=== PATIENT | female | born 1980 | race Caucasian/White ===

== ENCOUNTER → 2016-09-15 12:30 | Observation (INO) ==
--- NOTE | 2016-09-15 12:22 | Discharge Summary ---
Date of Encounter: 09/15/16 Time of Encounter: 12:23 - Discharge Diagnosis (1) 40 weeks gestation of Priority: Primary Status: Acute Comments: No cervical change after 2 hours. NST reactive Discharge home with labor precautions Follow up in office with Dr Montez as scheduled tomorrow, or prn in L&D (2) False labor after 37 completed weeks of gestation Priority: Primary Status: Acute - Discharge Medications Home Medications: Doxylamine Succinate [Unisom] 0.5 tab PO PRN PRN 09/15/16 [History] Vit #108/Iron/FA [ One Tablet] 1 tab PO DAILY 09/15/16 [History ] Ranitidine HCl [Zantac] 1 tab PO DAILY 09/15/16 [History] Allergies/Adverse Reactions: Allergies No Known Allergies Allergy (Verified 09/15/16 10:44) Date of admission: 09/15/16 10:13 Primary care physician: Kiley Prieto Discharging clinician: Lara Arora Anticipated date of discharge: 09/15/16 - Patient Status Disposition: Home, Self-Care Condition: Good Functional capacity at discharge: independent ambulation Overall status at discharge: patient is back to baseline - Discharge Instructions Follow Up With: Kiley Campbell MD [Primary Care Provider] - Guero Montez MD [Partnered Physician] - (Appointment scheduled tomorrow) - Diet and Activity Activity: resume usual activities as tolerated Diet: regular diet Hospital Course [employer] Time Attestation: Total time spent providing and/or coordinating discharge services: Time Spent: Less than 30 minutes Exam - Constitutional General appearance IM: cooperative, A&O X 3, pleasant - Respiratory Respiratory exam: Present: CTAB - Cardiovascular Cardiovascular exam IM: Present: RRR, +S1, +S2 - GI/Abdominal GI/Abdominal exam IM: normal bowel sounds, soft - Additional comments: Gravid uterus; palpates soft. FHTs 140's with moderate variability, 15x15 accels, no decels, category I tracing Contractions every 3 minutes, palpate mild. Reactive NST Cervix 1/thick/-2 at 1030, repeat at 1220 1/thick/-2 bloody show; no [place] blood. - Extremities Exam Extremities exam IM: Present: normal capillary refill, normal inspection, radial pulses palpable and symetrical - Neurological Exam Neurological exam: alert, oriented X3, reflexes normal
== END | disposition home or self-care (01) ==
LOC: 1NENULAB
PROVIDERS: ADMIT Student in an Organized Health Care Education/Training Program; ATTEND Student in an Organized Health Care Education/Training Program

== ENCOUNTER 2016-09-16 18:58 | Inpatient (IN) ==
[2016-09-16] MEDS ORDERED: Famotidine 20 MG/2 ML VIAL IVP PRN (19:06)
[2016-09-16] MEDS ORDERED: Naloxone 0.4 MG/ML INJ IVP PRN (19:06)
[2016-09-16] MEDS ORDERED: *HR* Nalbuphine 20 MG/ML AMPUL IVP PRN (19:06)
[2016-09-16] MEDS ORDERED: Ondansetron 4 MG/2 ML VIAL IVP PRN (19:06)
--- NOTE | 2016-09-16 19:16 | OB/GYN History & Physical ---
Date of Encounter: 09/16/16 Time of Encounter: 20:00 Assessment and Plan (1) Polyhydramnios affecting Current visit: Yes Status: Acute Admit to labor and delivery GBS negative Induction of labor with santiago and possible cytotec and pitocin Nubain and epidural as desired Anticipate Plan of care made in consultation with Dr. Quick (2) 40 weeks gestation of Current visit: No Status: Acute History of Present Illness Chief complaint: Induction of labor HPI: Ms. Anthony Acuna is a 36 year old female 40+1, polyhydramnios (LALI 29) here for induction of labor. Reports good movement and contractions. Denies vaginal bleeding or leaking of fluid. No other complications. Labs: A-, GBS-, Rubella, Varicella immune, all other serologies negative. Past Med Surg Social Fam HX - Past Medical History Source: patient Medical history: no medical history Psychiatric history: depression - Past Surgical History Surgical History: no surgical history - Social History Smoking Status: Never smoker Smokeless Tobacco Status: No Alcohol use: none Drug use: none - Family History Mother Hx Family Cardiac Disorders: Yes (HTN) Obstetrical History - Pregnancies : 1 Para: 0 Term: 0 : 0 Ab's: 0 Livin Medications and Allergies Doxylamine Succinate [Unisom] 0.5 tab PO PRN PRN 09/15/16 [History] Vit #108/Iron/FA [ One Tablet] 1 tab PO DAILY 09/15/16 [History ] Ranitidine HCl [Zantac] 1 tab PO DAILY 09/15/16 [History] Allergies No Known Allergies Allergy (Verified 09/15/16 10:44) Review of System OB All systems PM: reviewed and no additional remarkable complaints except as stated Exam - Constitutional Constitutional: well developed, well nourished, no acute distress, average body habitus - Neck Neck exam: full ROM - Lungs Respiratory exam: CTAB - Cardiovascular Cardiovascular exam: RRR - Abdomen Abdomen: Present: bowel sounds normal, gravid, non tender - Extremities Extremities exam: normal capillary refill, normal inspection - Vagina Vagina: Present: normal moisture - Cervix Dilation: 2 Effacement: 75 Station: -2 - Uterus Uterus exam: Present: normal size, normal contour - Anus/Rectum Anus/Rectum: Present: normal perianal skin Results Result Diagrams: 09/16/16 19:05 All other labs normal. - VTE Reasons for not Prescribing Prophylaxis: Medical contraindication
[2016-09-16 19:30] LABS: Basophils % 0.2 %; Eosinophils % 0.2 %; Hematocrit 35.6 % (35.3-44.9); Hemoglobin 11.9 g/dL (11.5-15.4); Immature Granulocytes % 0.6 % (0-4); Lymphocytes # 1.9 K/mcL (0.6-4.6); Lymphocytes % 18.3 %; Mean Corpuscular HGB Conc 33.4 g/dL (31.6-35.5); Mean Corpuscular Hemoglobin 28.4 pg (28.0-33.3); Mean Platelet Volume 11.2 fL (9.4-12.4); Monocytes # 0.6 K/mcL (0.0-1.3); Monocytes % 5.9 %; Neutrophils # 7.8 K/mcL (1.6-8.9); Platelet Count 199 K/mcL (140-400); Red Blood Count 4.19 M/mcL (3.82-4.97); Red Cell Distribution Width 13.8 % (11.5-14.5); Segmented Neutrophils % 74.8 %
[2016-09-16 20:01] LABS: Platelet Clumps Few (Not Present); Platelet Estimate Normal (Normal)
[2016-09-16] MEDS ORDERED: Oxytocin 20 units/ LR 1000 mL 20 UNIT/1,000 ML BAG IVC SCH (22:45)
--- NOTE | 2016-09-16 22:46 | OB Labor Progress Note ---
Date of Encounter: 09/16/16 Time of Encounter: 22:44 Labor Progress Note - Subjective Subjective: Pt becoming more and more uncomfortable with contractions, breathing through them. - Vital Signs Vital Signs: VSS - Cervix Cervix: 4/80/-2 - Heart Tones Heart Tones: 125/moderate/+accels/-decels Cat I - [place]: 2-4 - Interventions Interventions: Will start pitocin - Plan Plan: Start pitocin per policy after 30 minutes of ambulation off monitor Nubain and Epidural as desired Anticipate
[2016-09-16] MEDS ORDERED: Epidural Premix (fent/bupiv) 110 ML EP SCH (23:45)
[2016-09-16] MEDS ORDERED: Ringers Solution, Lactated 500 ML IVC ONE (23:55)
[2016-09-16] MEDS ORDERED: EPHEDrine 50 MG/ML VIAL IVP PRN (23:55)
[2016-09-16] MEDS ORDERED: Epidural Premix (fent/bupiv) 110 ML EP ONE (23:58)
--- NOTE | 2016-09-17 00:48 | Anesthesia Evaluation PreOp ---
Date of Encounter: 09/17/16 Time of Encounter: 00:47 - Past History Planned Operation: DOMINGO Cardiac History: Denies any Significant Hx Pulmonary History: Denies Any Significant HX BAT BOY/GIRL History: Denies Any Significant HX Other Medical History: Denies Any Significant HX Anesthesia History: No Prior Anesthetic Complications Alcohol Use: none Drug use: none Medications and Allergies Doxylamine Succinate [Unisom] 0.5 tab PO PRN PRN 09/15/16 [History] Vit #108/Iron/FA [ One Tablet] 1 tab PO DAILY 09/15/16 [History ] Ranitidine HCl [Zantac] 1 tab PO DAILY 09/15/16 [History] Allergies No Known Allergies Allergy (Verified 09/15/16 10:44) - Meds/Allergy Pre-op Review Medications Reviewed: Yes Allergies Reviewed: Yes Beta Blockers on Current Med List: No Anesthesia Results - Labs 09/16/16 19:05 Anesthesia Exam Height: 5.5 Weight: 105.5kg NPO (# of Hours): 6 Pain Scale: 10 Pain Scale Used: Numeric (1 - 10) - HEENT Pupil (Motor): Pupils equal Mallampati: II Teeth: Normal Oral Opening: Greater than 3 - BAT BOY/GIRL LOC: Oriented BAT BOY/GIRL Motor: Normal RUE, Normal LUE, Normal RLE, Normal LLE, Normal Face BAT BOY/GIRL Sensory: Normal: RUE, LUE, RLE, LLE, Face - Cardiac Rhythm: Regular Murmur: None JVD: No Carotid Bruit: No - Pulmonary Breath Sounds: bilateral Clear Respiratory Effort: Symmetrical Anesthesia Assess/Plan ASA Score: 2 Modified [place] Scale for Level of Consciousness: Cooperative, oriented, and tranquil Anesthetic Plan: General (plan b), Regional (plan a) Autologous Blood: Yes Monitoring Plan: Standard Monitors
--- NOTE | 2016-09-17 00:51 | Anesthesia Procedures ---
Date of Encounter: 09/17/16 Time of Encounter: 00:49 Procedures: Anesthesia - Epidural/Spinal Patient ID/Chart reviewed: Yes Patient examined: Yes OB Eval: Gestational age: 40.1 OB Eval: : 1 OB Eval: Hx Para: 0 OB Eval: Dilated at (cm): 4 OB Eval: Contractions: Non-stressed pattern Consent Obtained: Yes Supplemental Oxygen: None/Room Air Site Prep: Aseptic Technique, Sterile prep and drape, Povidone-Iodine 1% Patient position: upright Local Anesthetic: Lidocaine 1% Amount of Local Anesthetic used: 3 Touhy Needle Gauge: 18 Touhy Needle Depth (cm): 10 Catheter Depth at Skin (cm): 20 Test Dose (1.5% Lido + Epi): Volume given (mls): 5 Test Dose Result: Negative Loading Dose: Other: 5mls of epidural pharm bag premix solution Loading Dose Administered: Thru Catheter Infusion Med: 0.125% Bupivacaine w/ 2 mcg/ml Fentanyl Infusion Rate (mls/hr): 14 ([id number]) Catheter Secured in Place: Tegaderm, Tape Interspace Used: L3-L4 Loss of Resistance (MOOKIE): Yes Blood: No CSF: No Paresthesia: No Procedure: pt tolerated procedure well. no complications. fhr stable. 114/61 hr 66 91/50 hr 65 (Ephedrine 5mg give IV) 108/68 hr 70 Pt comfortable. vss.
[2016-09-17] MEDS ORDERED: EPHEDrine 50 MG/ML VIAL ONE (00:55)
[2016-09-17] MEDS: Ringers Solution, Lactated 1,000 ML IVC SCH ×3 (00:58→06:33)
[2016-09-17] MEDS ORDERED: Famotidine 20 MG/2 ML VIAL IVP ONE ×2 (01:40→19:32)
--- NOTE | 2016-09-17 05:57 | OB Labor Progress Note ---
Date of Encounter: 09/17/16 Time of Encounter: 05:54 Labor Progress Note - Subjective Subjective: Pt in bed with epidural. Feeling some contractions, anesthesia called to evaluate for increasing rate. - Vital Signs Vital Signs: VSS - Cervix Cervix: 5/80/-2 - Heart Tones Heart Tones: 150/moderate/no accels/no decels. RN states lates earlier in shift. Now resolved. - [place]: 3-4 - Interventions Interventions: AROM with FSE placement for clear fluid - Plan Plan: Continue to increase pitocin until adequate labor Anticipate
[2016-09-17] MEDS ORDERED: Lidocaine/EPI 1:200k 2% PF 20 ML VIAL ONE (06:27)
[2016-09-17] MEDS ORDERED: *HR* FentaNYL (PF) 100 MCG/2 ML VIAL ONE ×3 (06:27→19:31)
--- NOTE | 2016-09-17 06:33 | Anesthesia Progress Note ---
Date of Encounter: 09/17/16 Time of Encounter: 06:32 Anesthesia Note - Note Note: 09/17/16 06:32 called for increased pain during contractions. rate increased to 16ml/hr. bolus given 5ml of 2%lidocaine with epi with 100mcg fentanyl. vss. fhr stable.
[2016-09-17] MEDS ORDERED: Epidural Premix (fent/bupiv) 110 ML EP ONE ×3 (07:19→19:28)
[2016-09-17] MEDS ORDERED: ROPIVACAINE HCL/PF 0.5% 30 ML VIAL ONE (07:44)
--- NOTE | 2016-09-17 08:00 | Anesthesia Progress Note ---
Date of Encounter: 09/17/16 Time of Encounter: 07:45 Anesthesia Note - Note Note: 09/17/16 07:58 Patient with continued c/o right sided pain 4-5/10. Epidural catheter withdrawn to 14cm in sterile fashion. Ropivacaine 0.5% 6mL given. Will continue to monitor.
--- NOTE | 2016-09-17 10:10 | Anesthesia Procedures ---
Date of Encounter: 09/17/16 Time of Encounter: 09:50 Procedures: Anesthesia - Epidural/Spinal Patient ID/Chart reviewed: Yes Patient examined: Yes OB Eval: Gestational age: 40.1 OB Eval: Dilated at (cm): 6 OB Eval: Contractions: Non-stressed pattern Consent Obtained: Yes Supplemental Oxygen: None/Room Air Site Prep: Aseptic Technique, Sterile prep and drape, 0.5% Chlorhexidine/Alcohol Patient position: upright Local Anesthetic: Lidocaine 1% Amount of Local Anesthetic used: 2.5 Touhy Needle Gauge: 18 Touhy Needle Depth (cm): 7 Catheter Depth at Skin (cm): 13 Test Dose (1.5% Lido + Epi): Volume given (mls): 4 Test Dose Result: Negative Loading Dose: Other: Ropivacaine 0.5% 10mL Loading Dose Administered: Thru Catheter Infusion Med: 0.125% Bupivacaine w/ 2 mcg/ml Fentanyl Infusion Rate (mls/hr): 16 (Bolus 5mL 15 min; Max 3/hr) Catheter Secured in Place: Tegaderm, Tape Interspace Used: L2-L3 Loss of Resistance (MOOKIE): Yes Blood: No CSF: No Paresthesia: No Procedure: x1 attempt. Patient tolerated well. Vitals + FHT's: VSS and FHR stable throughout. See nursing documentation.
--- NOTE | 2016-09-17 11:49 | OB Labor Progress Note ---
Date of Encounter: 09/17/16 Time of Encounter: 11:47 Labor Progress Note - Subjective Subjective: Patient complains of vaginal pressure. She is not feeling the urge to push, but states her lower half is very numb - Cervix Cervix: 6/80/-1 cephalic - Heart Tones Heart Tones: 138 category 1 - [place]: q 4-5 minutes. Pitocin is currently off due to previous category 2 that has now resolved. Pitocin will be restarted at 2 milliunits/min - Interventions Interventions: On vaginal exam the santiago balloon is noted palpable anterior and reduced above the head. Pressure resolved with repositioning of santiago. - Plan Plan: Restart pitocin with category 1
--- NOTE | 2016-09-17 17:20 | OB Labor Progress Note ---
Date of Encounter: 09/17/16 Time of Encounter: 17:00 Labor Progress Note - Subjective Subjective: Patient is feeling more pain. She complains of fatigue. - Cervix Cervix: 9/90/0 - Heart Tones Heart Tones: 150, category 1 - [place]: q 1.5-2 minutes - Plan Plan: Patient would like a rebolus of her epidural to try and get comfortable. She is encouraged by the cervical change that is occurring.
[2016-09-17] MEDS ORDERED: Acetaminophen 325 MG TABLET PO PRN ×2 (18:16→23:52)
--- NOTE | 2016-09-17 19:51 | Anesthesia Progress Note ---
Date of Encounter: 09/17/16 Time of Encounter: 17:00 Anesthesia Note - Note Note: 09/17/16 19:49 1700 - Called for increased pain. Ropiv 0.5% 5mL bolus with 100mcg Fentanyl. Increased comfort following bolus. 09/17/16 19:50 1925 -Additional bolus Ropiv 0.5% 6mL with 100mcg Fentanyl for intense pressure and increased pain.
[2016-09-17] MEDS ORDERED: Lidocaine 1% 20 ML MDV ONE (20:36)
--- NOTE | 2016-09-17 21:26 | OB/GYN Procedure Note ---
Delivery - Delivery Date: 09/17/16 Provider: Alena Huerta Intrapartum events: none, polyhydramnios Delivery induction: oxytocin, santiago Delivery augmentation: pitocin Delivery monitor: external FHT, external uterine, internal FHT Anesthesia: epidural Estimated Blood Loss: 350 - Infant (s) A Infant Delivery Date: 09/17/16 Infant Delivery Time: 20:51 Presentation: vertex Position: VISHNU Route of delivery: Gender: Male Viability: Viable Pounds: 8 Ounces: 6 Weight Gram: 3.805 kg at 1 minute: 7 at 5 mins: 8 Shoulder Dystocia: not encountered Specimens collected: cord blood Placenta: spontaneous Cord: nuchal cord, 3 umbilical vessels, nuchal reduced - Repair Episiotomy: none Laceration Description: Perineal - 2nd Degree - Complications Delivery complications: none Delivery comments: Called to room with patient complete and +2 station. Under maternal effort she delivered a viable male weighing 8 lbs. 6 oz. and Apgars 7 and 8 at one and 5 minutes respectively over second-degree perineal laceration. Following delivery of the head there was a loose nuchal cord noted 2 that was reduced. Shoulders delivered under maternal effort and without difficulty. No shoulder dystocia was encountered. Infant was placed on mom's abdomen. Cord was allowed to cease pulsations and then clamped and cut. Cord blood was collected. Placenta delivered spontaneously, complete, and intact with a three-vessel cord. Second-degree perineal laceration was repaired using 3-0 Vicryl in standard fashion. Mother and infant are recovering in the LDR in stable condition. - Disposition Mom disposition: stable in LDR [place] disposition: stable in LDR
[2016-09-17] MEDS ORDERED: Oxytocin 20 units/ LR 1000 mL 20 UNIT/1,000 ML BAG IVC SCH (23:52)
[2016-09-17] MEDS ORDERED: Rho Immune Globulin 1,500 UNIT SYRINGE IM PRN (23:52)
[2016-09-17] MEDS ORDERED: Benzocaine/Menthol 56 GM AEROSOL SPRAY TP PRN (23:53)
[2016-09-18] MEDS: Ibuprofen 600 MG TABLET PO PRN ×4 (00:34→21:31)
[2016-09-18 07:57] LABS: Hematocrit 26.8 % (35.3-44.9); Mean Corpuscular HGB Conc 33.2 g/dL (31.6-35.5); Mean Corpuscular Hemoglobin 28.8 pg (28.0-33.3); Mean Corpuscular Volume 86.7 fL (83.0-100.0); Mean Platelet Volume 10.7 fL (9.4-12.4); Platelet Count 206 K/mcL (140-400); Red Blood Count 3.09 M/mcL (3.82-4.97); Segmented Neutrophils % 84.5 %
[2016-09-18 07:58] LABS: Basophils % 0.1 %; Hemoglobin 8.9 g/dL (11.5-15.4); Immature Granulocytes % 0.7 % (0-4); Lymphocytes # 1.7 K/mcL (0.6-4.6); Lymphocytes % 7.6 %; Monocytes # 1.6 K/mcL (0.0-1.3); Monocytes % 7.1 %; Neutrophils # 18.4 K/mcL (1.6-8.9)
--- NOTE | 2016-09-18 08:22 | OB/GYN Progress Note ---
Date of Encounter: 09/18/16 Time of Encounter: 08:20 - Assessment and Plan (1) Polyhydramnios affecting Current Visit: Yes Status: Resolved (2) 40 weeks gestation of Current Visit: No Status: Resolved (3) Anemia affecting Current Visit: Yes Status: Acute Repeat CBC in AM Subjective - Subjective Patient reports: appetite normal, voiding normally, pain well controlled [place]: doing well Objective - Latest Vital Signs Latest vital signs: Vital Signs Temp Pulse Resp BP Pulse Ox 09/18/16 01:45 97.8 F 96 16 121/75 97 09/18/16 00:39 98.2 F 72 16 124/73 98 09/17/16 23:40 97.8 F 78 16 128/68 97 Intake and Output 09/17/16 09/18/16 09/18/16 23:59 07:59 15:59 Intake Total 500 / 500 Output Total 75 / 75 450 / 450 Balance 425 / 425 -450 / -450 Intake: Oral 500 / 500 Output: Urine 75 / 75 450 / 450 Other: Weight 105.823 kg Patient Weight 09/18/16 23:59 Weight 105.823 kg - Exam Lungs: bilateral: normal Chest: Normal S1, Normal S2 Extremities: Present: normal Abdomen: Present: normal appearance, soft, gravid Uterus: Present: normal Uterus Position: 2 Fingers Below Umbilicus - Labs Labs: Laboratory Results - last 24 hr 09/18/16 07:22 WBC 21.8 H D RBC 3.09 L Hgb 8.9 L D Hct 26.8 L MCV 86.7 MCH 28.8 MCHC 33.2 RDW 14.0 Plt Count 206 MPV 10.7 Immature Gran % 0.7 Seg Neutrophils % 84.5 Lymphocytes % 7.6 Monocytes % 7.1 Eosinophils % 0.0 Basophils % 0.1 Neutrophils # 18.4 H Lymphocytes # 1.7 Monocytes # 1.6 H Eosinophils # 0.0 Basophils # 0.0
[2016-09-18] MEDS: Prenatal Vit/FA 1 EACH TABLET PO SCH (08:44)
[2016-09-19] MEDS: Ibuprofen 600 MG TABLET PO PRN ×2 (03:24→09:06)
[2016-09-19 04:43] LABS: Basophils # 0.1 K/mcL (0.0-0.2); Basophils % 0.4 %; Eosinophils # 0.1 K/mcL (0.0-0.6); Eosinophils % 0.7 %; Hematocrit 26.5 % (35.3-44.9); Hemoglobin 8.9 g/dL (11.5-15.4); Immature Granulocytes % 0.8 % (0-4); Lymphocytes # 2.9 K/mcL (0.6-4.6); Lymphocytes % 19.5 %; Mean Corpuscular HGB Conc 33.6 g/dL (31.6-35.5); Mean Corpuscular Hemoglobin 29.5 pg (28.0-33.3); Mean Corpuscular Volume 87.7 fL (83.0-100.0); Mean Platelet Volume 10.9 fL (9.4-12.4); Monocytes % 6.4 %; Neutrophils # 10.8 K/mcL (1.6-8.9); Platelet Count 221 K/mcL (140-400); Red Blood Count 3.02 M/mcL (3.82-4.97); Red Cell Distribution Width 14.5 % (11.5-14.5); Segmented Neutrophils % 72.2 %
[2016-09-19] MEDS: Prenatal Vit/FA 1 EACH TABLET PO SCH (08:37)
[2016-09-19 08:48] VITALS: BP 122/71
--- NOTE | 2016-09-19 09:26 | Discharge Summary ---
Date of Encounter: 09/19/16 Time of Encounter: 09:24 - Discharge Diagnosis (1) Vaginal delivery Priority: Primary Status: Acute Comments: Doing well s/p Day 2 vaginal delivery Pain is well controlled Lochia is light without clots Able to urinate and pass gas without difficulty Patient is breast feeding Discharge home today (2) Anemia complicating puerperium Priority: Secondary Status: Acute Comments: Hgb 8.9 post delivery. Patient is asymptomatic Discharge home with ferrous sulfate daily - Discharge Medications Prescriptions: Ibuprofen [Motrin] 600 mg PO Q6HR PRN #60 tablet PRN Reason: Cramping Breast Pump [BREAST PUMP] 1 each .ROUTE AD #1 each Home Medications: Vit #108/Iron/FA [ One Tablet] 1 tab PO DAILY 09/15/16 [History ] Ranitidine HCl [Zantac] 1 tab PO DAILY 09/15/16 [History] Benzocaine/Menthol [place] [Dermoplast [place]] 1 appl TP QID PRN #0 aerosol [Rx] Breast Pump [BREAST PUMP] 1 each .ROUTE AD #1 each 09/19/16 [Rx] Docusate [Colace] 100 mg PO BID capsule 09/19/16 [Rx] Ferrous Sulfate 325 mg PO DAILY #60 tablet 09/19/16 [Rx] Ibuprofen [Motrin] 600 mg PO Q6HR PRN #60 tablet 09/19/16 [Rx] Allergies/Adverse Reactions: Allergies No Known Allergies Allergy (Verified 09/15/16 10:44) Data Procedures and tests throughout hospitalization: Laboratory Tests 09/16/16 09/17/16 09/18/16 19:05 21:16 07:22 WBC 10.4 21.8 H D RBC 4.19 3.09 L Hgb 11.9 8.9 L D Hct 35.6 26.8 L MCV 85.0 86.7 MCH 28.4 28.8 MCHC 33.4 33.2 RDW 13.8 14.0 Plt Count 199 206 MPV 11.2 10.7 Immature Gran % 0.6 0.7 Seg Neutrophils % 74.8 84.5 Lymphocytes % 18.3 7.6 Monocytes % 5.9 7.1 Eosinophils % 0.2 0.0 Basophils % 0.2 0.1 Neutrophils # 7.8 18.4 H Lymphocytes # 1.9 1.7 Monocytes # 0.6 1.6 H Eosinophils # 0.0 0.0 Basophils # 0.0 0.0 Platelet Estimate Normal Clumped Platelets Few A Screen NEGATIVE Baby's Blood Type A RH POSITIVE Mother's Blood Type A RH NEGATIVE Rhogam Indicated YES Rhogam Req for Mother 1 09/19/16 04:00 WBC 14.9 H RBC 3.02 L Hgb 8.9 L Hct 26.5 L MCV 87.7 MCH 29.5 MCHC 33.6 RDW 14.5 Plt Count 221 MPV 10.9 Immature Gran % 0.8 Seg Neutrophils % 72.2 Lymphocytes % 19.5 Monocytes % 6.4 Eosinophils % 0.7 Basophils % 0.4 Neutrophils # 10.8 H Lymphocytes # 2.9 Monocytes # 1.0 Eosinophils # 0.1 Basophils # 0.1 Platelet Estimate Clumped Platelets Screen Baby's Blood Type Mother's Blood Type Rhogam Indicated Rhogam Req for Mother Labs on day of discharge: Labs from last 24 hours 09/19/16 09/17/16 04:00 21:16 WBC 14.9 H RBC 3.02 L Hgb 8.9 L Hct 26.5 L MCV 87.7 MCH 29.5 MCHC 33.6 RDW 14.5 Plt Count 221 MPV 10.9 Immature Gran % 0.8 Seg Neutrophils % 72.2 Lymphocytes % 19.5 Monocytes % 6.4 Eosinophils % 0.7 Basophils % 0.4 Neutrophils # 10.8 H Lymphocytes # 2.9 Monocytes # 1.0 Eosinophils # 0.1 Basophils # 0.1 Screen NEGATIVE Baby's Blood Type A RH POSITIVE Mother's Blood Type A RH NEGATIVE Rhogam Indicated YES Rhogam Req for Mother 1 Date of admission: 09/16/16 18:58 Primary care physician: PCP NO Consults: 09/17/16 23:52 Consult to Services Host [CONS] Routine Comment: Vaginal delivery, consult needed Discharging clinician: Lara Arora Anticipated date of discharge: 09/19/16 - Patient Status Disposition: Home, Self-Care Condition: Good Functional capacity at discharge: independent ambulation Overall status at discharge: patient is progressing back to baseline - Discharge Instructions Follow Up With: NO,PCP [Primary Care Provider] - Guero Montez MD [Partnered Physician] - - Diet and Activity Activity: increase activity as tolerated Diet: regular diet Hospital Course Reason for admission: induction of labor, IUP at term Delivery: Episiotomy: none Laceration: 2nd degree Other procedures: none complications: none Discharge diagnosis: IUP at term delivered [place] baby: male Time Attestation: Total time spent providing and/or coordinating discharge services: Time Spent: Less than 30 minutes Exam - Constitutional Vitals: Temp Pulse Resp BP Pulse Ox 97.7 F 59 14 122/71 99 09/19/16 08:00 09/19/16 08:00 09/19/16 08:00 09/19/16 08:00 09/19/16 08:00 General appearance IM: cooperative, A&O X 3, pleasant - Respiratory Respiratory exam: Present: CTAB - Cardiovascular Cardiovascular exam IM: Present: RRR, +S1, +S2 - GI/Abdominal GI/Abdominal exam IM: normal bowel sounds, soft Incision: normal, dry, intact - Uterine Tone: Firm Uterus Position: At Umbilicus, Midline - Extremities Exam Extremities exam IM: Present: normal capillary refill, normal inspection, radial pulses palpable and symetrical - Neurological Exam Neurological exam: alert, oriented X3, reflexes normal
== END 2016-09-19 13:53 | disposition home or self-care (01) | DRG 775 ==
LOC: 1NENULAB 18:58 → 1NENUOBS 09-17 23:59
PROVIDERS: ADMIT Obstetrics & Gynecology; ATTEND Obstetrics & Gynecology